=== PATIENT | female | born 1960 | race Caucasian/White ===

== ENCOUNTER 2024-05-06 12:05 | Emergency (ER) | payer OTHER, SELFPAY ==
[2024-05-06 12:14] VITALS: BP 116/71
[2024-05-06 12:43] VITALS: BMI 20.9
--- NOTE | 2024-05-06 12:53 | ED.GENMED ---
History of Present Illness
General
Chief Complaint: Head Injury
Source: patient
Time Seen by Provider: 05/06/24 12:37
History of Present Illness
History of Present Illness:
64-year-old female presents to the emergency room after suffering a head injury. Patient was ice-skating when she fell backwards and struck the back of her head. She did not lose consciousness but did have the sensation of tingling in her arms
for a short period of time. Currently she has a diffuse headache as well as tenderness at the area where she struck her head. She was nauseous initially but is no longer nauseous. She did not vomit. She does not take any oral anticoagulation.
Phy Exam
Physical Exam
Physical Exam:
General: Awake, Alert, Oriented X3. No acute distress.
Vitals: unremarkable
Head: Small posterior cephalohematoma
Eyes: Pupils equal, EOMI
Throat: Airway intact, no exudates
Neck: Trachea midline
Lungs: Clear and equal b/l
Heart: Regular rate, no murmurs
Abd: Soft, Nontender, No pulsatile mass
Neuro: Cranial nerves intact, muscle strength equal bilaterally, cerebellar exam normal
Skin: Warm, dry, no rash
Extremities: pulses equal b/l, no edema
Course
Orders/Labs/Results
Orders:
Orders
05/06/24 12:52
CT Head W/o Iv Contrast Urgent
Comment:
Reason For Exam: head injury
Vital Signs
Initial and Last Documented VS:
Initial Vital Signs
Temp Pulse Resp BP Pulse Ox
97.9 F 79 17 116/71 99
05/06/24 12:14 05/06/24 12:14 05/06/24 12:14 05/06/24 12:14 05/06/24 12:14
Last Documented Vital Signs
Temp Pulse Resp BP Pulse Ox
97.9 F 80 18 115/70 99
05/06/24 12:14 05/06/24 15:15 05/06/24 15:15 05/06/24 15:15 05/06/24 15:15
MDM/Problems Addressed
Differential Diagnosis Includes:
Scalp contusion, subdural, cerebral contusion
MDM/Problems Addressed:
Patient presents after a fall on ice and striking the back of her head. Head CT shows no acute abnormality. Patient is minimally symptomatic at the time of discharge. Stable for discharge home
*Radiology
Radiology exam reviewed: radiology read reviewed
*Critical Care Note
Total Time (30-74mins, 75-104mins- exclusive of procedures): Not Applicable
ED Attending Note
-
Portions of this chart may have been created with voice recognition software.� Occasional wrong word or��sound alike� substitutions may have occurred due to the inherent limitations of voice recognition software.
Discharge Plan
Departure
Patient Disposition: Home (Routine Discharge)
Date of Disposition: 05/06/24
Time of Disposition: 15:07
Patient with high blood pressure during this ER visit?: No
Condition: Good
Discharge Problem:
Head injury, Hematoma of occipital region of scalp
Instructions: Minor Head Injury (DC)
Referrals:
Enriqueta Hernández MD [Family Provider] -
Interventions
Interventions:
*Risk Screen - Suicide Last Done: 05/06/24 12:14
*General Assessment Last Done: 05/06/24 12:14
*Neglect/Abuse Screening Last Done: 05/06/24 12:14
ED- Fall Risk Assessment Last Done: 05/06/24 12:43
*ED COVID-19 Vaccine History Last Done: 05/06/24 12:43
*Nursing Disposition Last Done: 05/06/24 15:16
ED- Neurological Assessment Last Done: 05/06/24 12:45
ED-Skin Assessment Last Done: 05/06/24 12:43
Discharge Date and Time
Discharge Date/Time: 05/06/24 15:16
Print Language: MALDIVIAN
[2024-05-06 15:15] VITALS: BP 115/70
== END 2024-05-06 15:16 | disposition home or self-care (01) ==
LOC: EMR 12:05
PROVIDERS: EMERGENCY PHYSICIAN Emergency Medicine; FAMILY PHYSICIAN Family Medicine
DX: S09.90XA Unspecified injury of head, initial encounter (principal); S00.03XA Contusion of scalp, initial encounter; W00.0XXA Fall on same level due to ice and snow, initial encounter
CPT/HCPCS: 99284; 70450

== ENCOUNTER → 2025-07-06 07:30 | Outpatient (REF) | payer OTHER, SELFPAY | LOC: HWRAD 07:30 | PROVIDERS: ATTENDING PHYSICIAN Family Medicine | DX: Z78.0 Asymptomatic menopausal state (principal) | CPT/HCPCS: 77080 ==